=== PATIENT | male | born 1975 | race Caucasian/White ===

== ENCOUNTER → 2018-04-20 | Outpatient (CLI) | payer BC ==
[2018-04-20 11:40] LABS: HEMOGLOBIN 15.9 G/DL (13.3-17.7); MEAN PLATELET VOLUME 9.3 FL (7.4-10.4); RED CELL DISTRIBUTION WIDTH 12.6 % (10.0-14.5); WHITE BLOOD COUNT 4.5 10^3/uL (4.3-11.0)
[2018-04-20 11:54] LABS: ALANINE AMINOTRANSFERASE 58 U/L (0-55); ALBUMIN 4.3 GM/DL (3.2-4.5); ALKALINE PHOSPHATASE 64 U/L (40-136); BILIRUBIN,TOTAL 0.9 MG/DL (0.1-1.0); BUN/CREATININE RATIO 14; CALCIUM 9.4 MG/DL (8.5-10.1); CARBON DIOXIDE 26 MMOL/L (21-32); CHLORIDE 104 MMOL/L (98-107); CHOLESTEROL 220 MG/DL (< 200); CREATININE SERUM 0.92 MG/DL (0.60-1.30); GFR ESTIMATED > 60; GLUCOSE 100 MG/DL (70-105); HDL CHOLESTEROL 35 MG/DL (40-60); POTASSIUM 4.2 MMOL/L (3.6-5.0); SODIUM 141 MMOL/L (135-145); TOTAL PROTEIN 7.6 GM/DL (6.4-8.2); TRIGLYCERIDES 144 MG/DL (<150); VLDL CHOLESTEROL 29 MG/DL (5-40)
== END ==
LOC: LAB 11:14
PROVIDERS: ATTEND Family Medicine
DX: Z00.01 Encounter for general adult medical examination with abnormal findings (principal); I10 Essential (primary) hypertension
CPT/HCPCS: 36415; 80053; 80061; 85027

== ENCOUNTER 2021-01-22 03:02 | Emergency (ER) | payer BC ==
[~2021-01-22] VITALS: Ht 170 cm; Wt 102.0 kg
[2021-01-22] MEDS ORDERED: METO50TA15 (03:15)
[2021-01-22] MEDS ORDERED: PARO40TA3 (03:15)
[2021-01-22] MEDS ORDERED: HYDR25TA4 (03:15)
--- NOTE | 2021-01-22 03:31 | ED Abdominal Pain ---
General Chief Complaint: Abdominal/GI Problems Stated Complaint: RT SIDE PAIN Nursing Triage Note: INTERMITTANT RIGHT LOWER ABDOMINAL PAIN RADIATING TO RIGHT FLANK SINCE 222901/21/21. Source of Information: Patient Exam Limitations: No Limitations History of Present Illness Date Seen by Provider: Jan 22, 2021 Time Seen by Provider: 03:20 Initial Comments Patient is a 45-year-old male who presents to the emergency department today with a chief complaint of right lower quadrant abdominal pain that seems to radiate up into his right flank. Patient endorses nausea and vomiting 3 or 4 times this evening. Onset of pain was around 1030 tonight. Patient has not taken any medications for the pain. He states nothing particularly makes the pain any better or any worse. He has been having normal bowel movements. He states that he is circumcised, he has no concerns for sexually transmitted infection, is not having testicular pain or scrotal swelling. He takes medications for depression and hypertension. He has never had a bladder infection before he has never had a kidney stone before. Patient has had no prior abdominal surgeries. He denies fevers or chills, cough or congestion, no Covid concerns. Patient is Covid vaccinated. Currently rates his pain a "7" but at its worst a "9". All other review of systems reviewed and negative except as stated. Timing/Duration: 4-6 Hours Severity/Quality: Moderate, Sharp Location: RLQ, Flank (right) Radiation: No Radiation Activities at Onset: Rest Associated Symptoms: Nausea/Vomiting Allergies and Home Medications Allergies Coded Allergies: Penicillins (Unverified Allergy, Unknown, 07/29/14) Patient Home Medication List Home Medication List Reviewed: Yes Hydrochlorothiazide (Hydrochlorothiazide) 25 Mg Tablet, (Reported) Entered as Reported by: KATELYN MCGEE on 01/22/21314 Last Action: New Order Hydrocodone/Acetaminophen (Hydrocodone-Acetamin 5-325 mg) 1 Each Tablet, 1 TAB PO Q6H PRN for PAIN-MODERATE (5-7) Prescribed by: JORGE JOHNS on 01/22/21 0550 Metoprolol Tartrate (Metoprolol Tartrate) 50 Mg Tablet, (Reported) Entered as Reported by: KATELYN MCGEE on 01/22/21314 Last Action: New Order Ondansetron (Ondansetron Odt) 4 Mg Tab.rapdis, 4 MG PO Q8H PRN for nausea Prescribed by: JORGE JOHNS on 01/22/21546 Paroxetine HCl (Paroxetine HCl) 40 Mg Tablet, (Reported) Entered as Reported by: KATELYN MCGEE on 01/22/21314 Last Action: New Order Tamsulosin HCl (Flomax) 0.4 Mg Cap, 0.4 MG PO DAILY Prescribed by: JORGE JOHNS on 01/22/21546 Review of Systems Review of Systems Constitutional: see HPI EENTM: No Symptoms Reported Respiratory: No Symptoms Reported Cardiovascular: No Symptoms Reported Gastrointestinal: Abdominal Pain (RLQ), Nausea, Vomiting Genitourinary: Burning ("slight"); Denies Discharge; Frequency Musculoskeletal: no symptoms reported Skin: no symptoms reported All Other Systems Reviewed Negative Unless Noted: Yes Past Ktmkwdi-Scpcrg-Lvrquf Hx Patient Social History Tobacco Use?: No Use of E-Cig and/or Vaping dev: No Substance use?: No Alcohol Use?: No Pt feels they are or have been: No Immunizations Up To Date First/Initial COVID19 Vaccinat: 06/07 Second COVID19 Vaccination Federico: Physical Exam Vital Signs Vital Signs - First Documented 01/22/21 03:10 Temp 36.0 Pulse 70 Resp 16 B/P (MAP) 178/117 (137) Pulse Ox 97 O2 Delivery Room Air Capillary Refill : Less Than 3 Seconds Height/Weight/BMI Height: 5'7.00" Weight: 210lbs. oz. [id number]; 35.00 BMI Method: General Appearance: WD/WN, no apparent distress HEENT: PERRL/EOMI Neck: normal inspection Respiratory: lungs clear, normal breath sounds, no respiratory distress, no accessory muscle use Cardiovascular: regular rate, rhythm, no murmur Gastrointestinal: normal bowel sounds, non tender, soft, no organomegaly, no pulsatile mass Extremities: normal range of motion, non-tender, normal inspection Back: no CVA tenderness Neurologic/Psychiatric: alert, normal mood/affect, oriented x 3 Skin: normal color, warm/dry Progress/Results/Core Measures Results/Orders Lab Results Laboratory Tests Test 01/22/21 03:13 01/22/21 03:56 Range/Units Urine Color YELLOW Urine Clarity CLEAR Urine pH 6.0 5-9 Urine Specific [place] >=1.030 1.016-1.022 Urine Protein NEGATIVE NEGATIVE Urine Glucose (UA) NEGATIVE NEGATIVE Urine Ketones NEGATIVE NEGATIVE Urine Nitrite NEGATIVE NEGATIVE Urine Bilirubin NEGATIVE NEGATIVE Urine Urobilinogen 0.2 < = 1.0 MG/DL Urine Leukocyte Esterase NEGATIVE NEGATIVE Urine RBC (Auto) NEGATIVE NEGATIVE Urine RBC NONE /HPF Urine WBC NONE /HPF Urine Crystals NONE /LPF Urine Bacteria NEGATIVE /HPF Urine Casts NONE /LPF Urine Mucus SMALL H /LPF Urine Culture Indicated NO Sodium Level 139 135-145 MMOL/L Potassium Level 4.0 3.6-5.0 MMOL/L Chloride Level 100 98-107 MMOL/L Carbon Dioxide Level 28 21-32 MMOL/L Anion Gap 11 5-14 MMOL/L Blood Urea Nitrogen 17 7-18 MG/DL Creatinine 1.27 0.60-1.30 MG/DL Estimat Glomerular Filtration Rate 62 BUN/Creatinine Ratio 13 Glucose Level 159 H 70-105 MG/DL Calcium Level 9.4 8.5-10.1 MG/DL My Orders Orders - JORGE JOHNS MD Ua Culture If Indicated (01/22/21 03:28) Ed Iv/Invasive Line Start (01/22/21 03:50) Basic Metabolic Panel (01/22/21 03:50) Abdomen/Kub 1view (01/22/21 03:50) Ct Abd/Pelvis Wo(Kidney Stone) (01/22/21 03:50) Ketorolac Injection (Toradol Injection) (01/22/21 04:00) Tamsulosin Capsule (Flomax Capsule) (01/22/21 03:50) Ondansetron Injection (Zofran Injectio (01/22/21 04:00) Ns Iv 1000 Ml (Sodium Chloride 0.9%) (01/22/21 04:00) Hydrocodone/Apap 5/325 Tablet (Lortab 5 (01/22/21 06:00) Rx-Hydrocodone/Apap 5-325 Mg (Rx-Vicodin (01/22/21 06:00) Medications Given in ED Current Medications Medications Dose Ordered Sig/Taz Route Start Time Stop Time Status Last Admin Dose Admin Ketorolac Tromethamine 15 mg ONCE ONCE IVP 01/22/21 04:00 01/22/21 04:01 DC 01/22/21 04:01 15 MG Ondansetron HCl 4 mg ONCE ONCE IVP 01/22/21 04:00 01/22/21 04:01 DC 01/22/21 04:01 4 MG Vital Signs/I&O 01/22/21 03:10 Temp 36.0 Pulse 70 Resp 16 B/P (MAP) 178/117 (137) Pulse Ox 97 O2 Delivery Room Air Blood Pressure Mean: 137 Progress Progress Note #1: Time: 03:52 Progress Note UA is negative for signs of infection, however due to the type of onset, lovation and quality of pain, I am suspicious for a kidney stone, will go ahead and order BMP, CT/KUB, pain meds and nausea meds. Progress Note #2: Time: 05:44 Progress Note Patient reevaluated just before CT read came through (he does have a 2 millimeter right UVJ stone.), states his pain is coming back just a little bit. We will give him oral hydrocodone, send nausea medications pain medications and Flomax to his pharmacy. Patient is given good return precautions. He verbalized understanding. All questions are sought and answered. Patient is stable for discharge. Diagnostic Imaging Diagonstic Imaging: Xray, CT Plain Films/CT/US/NM/MRI: abdomen Comments KUB interpreted by me, normal bowel gas pattern, no obvious stones CT Abd/Pelvis renal stone protocol, per STAT RAD : 2 mm right ureterovesical junction stone resulting in moderate right hydroureteronephrosis, perinephric stranding and small amounts of perinephric fluid [facility], [facility]. [place], [place] NAME: ST[facility] REC#: [id number] PT STATUS: REG ER : 1975 PHYSICIAN: JORGE JOHNS MD ADMIT DATE: 01/22/21/ER Draft Date of Exam:01/22/21 ABDOMEN/KUB 1VIEW INDICATION: Right flank pain. Increased urinary frequency. COMPARISON: None FINDINGS: Single supine radiographic view of the abdomen was obtained and demonstrates nondistended loops of small bowel. There is no large collection of free peritoneal air. Mild air and stool are seen scattered throughout the colon. No unexpected extraosseous calcifications or radiopaque foreign bodies are seen. Bony structures show no gross acute abnormalities. IMPRESSION: 1. Nonobstructed small bowel gas pattern. Dictated on workstation # [id number] Dict: 01/22/21 0535 Trans: 01/22/21 0543 [id number] Interpreted by: ODALIS GOMEZ MD Electronically signed by: Departure Impression Primary Impression: Nephrolithiasis Disposition: 01 HOME, SELF-CARE Condition: Stable Departure-Patient Inst. Decision time for Depature: 05:45 Referrals: [facility] (PCP/Family) Primary Care Physician ALEXIS MARTIN MD Patient Instructions: Kidney Stones (DC) Add. Discharge Instructions: Drink lots of fluids to stay well-hydrated. You can take [id number] ibuprofen, 3 tablets which is 600 mg every 6 hours with food as needed for pain. I have also sent prescriptions for hydrocodone and narcotic pain medication to your [facility] pharmacy. Please do not drive and take this medication. You can take this for more severe pain. I have also sent a prescription for Zofran to take every 8 hours as needed for nausea. I have also sent a prescription for Flomax which you are to take every day for the next 1 to 2 weeks until you pass the stone. Please strain your urine until you passed her kidney stone. Please follow-up with [facility] hospital. I have also given you referral information for the urologist in case you have further issues with kidney stones. Return to the emergency room for any worsening pain that is not relieved by your prescribed pain medications or ibuprofen. Or come back if you develop fever, increased pain with vomiting or other emergent concerning symptoms Scripts Tamsulosin HCl (Flomax) 0.4 Mg Cap 0.4 MG PO DAILY, #14 CAP Prov: JORGE JOHNS MD 01/22/21 Ondansetron (Ondansetron Odt) 4 Mg Tab.rapdis 4 MG PO Q8H PRN for nausea, #15 TAB Prov: JORGE JOHNS MD 01/22/21 Hydrocodone/Acetaminophen (Hydrocodone-Acetamin 5-325 mg) 1 Each Tablet 1 TAB PO Q6H PRN for PAIN-MODERATE (5-7), #12 TAB Prov: JORGE JOHNS MD 01/22/21 JORGE JOHNS MD Jan 22, 2021 03:31
[2021-01-22 03:33] LABS: BILIRUBIN,URINE NEGATIVE (NEGATIVE); CLARITY,URINE CLEAR; COLOR,URINE YELLOW; GLUCOSE, URINE (UA) NEGATIVE (NEGATIVE); KETONES,URINE NEGATIVE (NEGATIVE); LEUKOCYTE ESTERASE ,URINE NEGATIVE (NEGATIVE); NITRITE,URINE NEGATIVE (NEGATIVE); PROTEIN,URINE NEGATIVE (NEGATIVE)
[2021-01-22 03:40] LABS: BACTERIA,URINE NEGATIVE /HPF
[2021-01-22] MEDS ORDERED: TAMSULOSIN 0.4 MG (FLOMAX) CAP PO STA (03:50)
[2021-01-22] MEDS ORDERED: NS IV 1000 ML 1,000 ML IV SCH (04:00)
[2021-01-22] MEDS ORDERED: ONDANSETRON 4 MG/2 ML (SDV) Z0FRAN IVP ONE (04:00)
[2021-01-22] MEDS ORDERED: KETOROLAC 30 MG/ML VIAL IVP ONE (04:00)
[2021-01-22 04:22] LABS: CALCIUM 9.4 MG/DL (8.5-10.1); CREATININE SERUM 1.27 MG/DL (0.60-1.30)
--- NOTE | 2021-01-22 05:44 | Diagnostic Imaging Report ---
INDICATION: Right flank pain. Increased urinary frequency. COMPARISON: None FINDINGS: Single supine radiographic view of the abdomen was obtained and demonstrates nondistended loops of small bowel. There is no large collection of free peritoneal air. Mild air and stool are seen scattered throughout the colon. No unexpected extraosseous calcifications or radiopaque foreign bodies are seen. Bony structures show no gross acute abnormalities. IMPRESSION: 1. Nonobstructed small bowel gas pattern. Dictated by: Dictated on workstation # [id number]
[2021-01-22] MEDS ORDERED: ONDA4TAB11 PO (05:47)
[2021-01-22] MEDS ORDERED: ACHD5005 PO (05:47)
[2021-01-22] MEDS ORDERED: TMSL.4C PO (05:47)
[2021-01-22] MEDS ORDERED: HYDROcodone/APAP 5 MG/325 MG (LORTAB) TAB PO ONE (06:00)
[2021-01-22 06:17] VITALS: BP 151/96
--- NOTE | 2021-01-22 06:57 | Diagnostic Imaging Report ---
PROCEDURE: CT urinary tract, rule out kidney stone. TECHNIQUE: Multiple contiguous axial images were obtained through the abdomen and pelvis without the use of intravenous contrast. Auto Exposure Controls were utilized during the CT exam to meet ALARA standards for radiation dose reduction. INDICATION: Right flank pain. Urinary frequency. Dysuria. COMPARISON: None FINDINGS: Included portions of the lung bases are clear. Small hiatal hernia is noted. CT ABDOMEN: 3 mm calculus is identified at the right UVJ (image 108, series 2). As a result, there is moderate proximal hydroureteronephrosis. There is also moderate asymmetric stranding of the perirenal fat on the right. No other renal calculi are seen on either side. No ureteral calculi are identified on the left. Additionally, there is no hydroureteronephrosis or other evidence of obstruction on the left. Kidneys have an otherwise unremarkable noncontrast CT appearance. Liver is diffusely hypodense with some relative sparing around the gallbladder fossa. Findings are considered consistent with hepatic steatosis. No focal hepatic masses are identified on this noncontrast study. The adrenal glands, spleen, and pancreas have an unremarkable noncontrast CT appearance as well. Small bowel loops are nondistended. Normal appendix is identified. There is no loculated fluid collection, free fluid or free air within the abdomen. No abnormal mesenteric or retroperitoneal adenopathy is seen. Osseous structures show no acute abnormalities. CT PELVIS: Again, small calculus is identified at the right UVJ. Urinary bladder is otherwise unopacified and minimally distended. There is no loculated fluid collection, free fluid or free air within the pelvis. No abnormal pelvic adenopathy is seen. Osseous structures show no acute abnormalities. IMPRESSION: 1. 3 mm calculus at the right UVJ resulting in moderate proximal hydronephrosis. 2. Hepatic steatosis. 3. I agree with [facility] report. Dictated by: Dictated on workstation # [id number]
== END 2021-01-22 06:12 | disposition home or self-care (01) ==
LOC: EDUNIT# 03:02 → ER 03:05
DX: N20.0 Calculus of kidney (principal)
CPT/HCPCS: 36415; 74018; 74176; 80048; 81000